=== PATIENT | male | born 1970 | race Caucasian/White ===

== ENCOUNTER → 2020-01-17 | Outpatient (CLI) | payer BC ==
--- NOTE | 2020-01-17 22:02 | CT ---
EXAMINATION TYPE: CT ChestAbdPelvis w con DATE OF EXAM: 01/17/2020 COMPARISON: None. HISTORY: Rectal ca, observe for mets. CT DLP: 747.10 mGycm. Automated Exposure Control for Dose Reduction was Utilized. CONTRAST: CT scan of the thorax, abdomen and pelvis is performed with oral and with IV Contrast, patient inject ed with 100 mL of Isovue 300. FINDINGS: LUNGS: The lungs are grossly clear, there is no concerning parenchymal mass or nodule identified. T here is no pleural effusion or pneumothorax seen. The tracheobronchial tree is patent. MEDIASTINUM: There are no greater than 1 cm hilar or mediastinal lymph nodes. No cardiomegaly or pe ricardial effusion is seen. There is 1.2 cm low-density left thyroid nodule coronal image 19 in norm al-sized thyroid. LIVER/GB: No significant abnormality is appreciated. PANCREAS: No significant abnormality is seen. SPLEEN: No significant abnormality is seen. ADRENALS: No significant abnormality is seen. KIDNEYS: No significant abnormality is seen. BOWEL: Oral contrast does not reach colonic level with incomplete opacification of pelvic small bowel loops. In addition patient has little intra-abdominal fat. All findings make evaluation suboptimal. No suspicious small or large bowel dilatation. Mild to moderate wall thickening in the rectum midport ion axial image 118 likely corresponds to site of biopsy-proven neoplasm. GENITAL ORGANS: Enlarged prostate gland thought present consistent with BPH. Surrounding pelvic phleb oliths. Central calcification. LYMPH NODES: No greater than 1cm abdominal or pelvic lymph nodes are appreciated. OSSEOUS STRUCTURES: No significant abnormality is seen. OTHER: No significant additional abnormality is seen. IMPRESSION: 1. No suspicious mass or adenopathy to suggest metastatic disease. 2. There is greater than 1 cm left-sided thyroid nodule. Follow-up thyroid ultrasound is advised to b berhane evaluate and characterize. 3. Enlarged prostate gland consistent with BPH is felt present, correlate clinically.
== END | disposition home or self-care (01) ==
LOC: RADCTMAIN 16:27
PROVIDERS: ATTEND Internal Medicine Hematology & Oncology
DX: E04.1 Nontoxic single thyroid nodule (principal); N40.0 Benign prostatic hyperplasia without lower urinary tract symptoms; C20 Malignant neoplasm of rectum
CPT/HCPCS: 71260; 74177; Q9967